=== PATIENT | female | born 1950 | race Two or more races ===

== ENCOUNTER 2023-08-09 15:29 | Inpatient (IN) | payer MEDICAID ==
[~2023-08-09] VITALS: Ht 149.9 cm; Wt 53.5 kg
[2023-08-09] MEDS ORDERED: ONDANSETRON ODT 4 MG TAB PO ONE (16:15)
[2023-08-09] MEDS ORDERED: HYDROcodone-ACET 5/325MG TAB PO ONE (16:15)
[2023-08-09 16:30] LABS: Hematocrit 34.9 % (36.0-46.0); Hemoglobin 11.9 g/dL (12.2-16.2); Mean Corpuscular Hemoglobin 29.7 pg (28.0-32.0); Mean Corpuscular Volume 87.3 fL (80.0-100.0); Red Cell Distribution Width 15.5 % (11.8-14.3); White Blood Cell 5.2 10^3/uL (4.4-10.8)
[2023-08-09 16:32] LABS: Band Neutrophils % (manual) 0; Basophils % (manual) 0 (0.0-2.0); Blast Cells 0; Metamyelocytes % 0; Myelocytes % 0; Promyelocytes % 0; Reactive Lymphocytes 0
[2023-08-09 16:49] LABS: Alanine Aminotransferase 43 U/L (7-40); Alkaline Phosphatase 125 U/L (46-116); Anion Gap 6 (5-15); Aspartate Aminotransferase 29 U/L (13-40); BUN/Creatinine Ratio 21.3 (10.0-20.0); Blood Urea Nitrogen 10 mg/dL (9-23); Calcium 8.8 mg/dL (8.7-10.4); Carbon Dioxide 24 mmol/L (20-30); Chloride 103 mmol/L (98-107); Glucose 110 mg/dL (74-106); Lipase 44 U/L (12-53); Potassium 3.5 mmol/L (3.5-5.1); Sodium 133 mmol/L (136-145)
[2023-08-09 16:50] LABS: Bilirubin, Total 0.4 mg/dL (0.2-1.0); Total Protein 7.2 g/dL (5.7-8.2)
[2023-08-09 17:10] LABS: Anisocytosis Slight; Eosinophils % (manual) 5 (0-7); Lymphocytes % (manual) 32 (10.0-50.0); Monocytes % (manual) 15 (0-12); Platelet Estimate Adequate
[2023-08-09] MEDS ORDERED: cefTRIAXone 1GM/50ML D5W 50 ML IV ONE (19:15)
[2023-08-09] MEDS ORDERED: metroNIDAZOLE 500MG/100ML 100 ML IV ONE (19:15)
[2023-08-09 21:05] LABS: Urine Bacteria NONE SEEN /hpf (None Seen); Urine Blood 2+ /uL (Negative); Urine Clarity HAZY (Clear); Urine Color Yellow (Yellow); Urine Mucus FEW (None Seen); Urine Protein, UAD 2+ (Negative); Urine Specific Gravity 1.025 (1.001-1.035); Urine Urobilinogen Normal (Negative); Urine WBC 41 /hpf (0 - 5)
[2023-08-09] MEDS: MORPHINE SULFATE INJ 2 MG/ml SYRG IV PRN (22:27)
[2023-08-09] MEDS: ONDANSETRON HCL 4 MG/2 ML VIAL IV PRN (22:27)
[2023-08-09] MEDS: SODIUM CHLORIDE 0.9% 1,000 ML IV SCH (23:03)
[2023-08-10] VITALS (9 sets, daily range): BP systolic 91–129; BP diastolic 54–69; PULSE 63–85; RESP 16–20; TEMP 98.6–100.2; O2SAT 88–94
[2023-08-10] MEDS ORDERED: METH2.5T62 PO (00:31)
[2023-08-10] MEDS ORDERED: TRAM50TA2 PO (00:31)
[2023-08-10] MEDS ORDERED: FOLI-119 PO ×2 (00:31→15:48)
[2023-08-10] MEDS ORDERED: HYDR200T36 PO ×2 (00:31→15:48)
[2023-08-10] MEDS: MORPHINE SULFATE INJ 2 MG/ml SYRG IV PRN ×4 (03:06→19:36)
[2023-08-10] MEDS: metroNIDAZOLE 500MG/100ML 100 ML IV SCH ×3 (05:35→21:45)
[2023-08-10 05:49] LABS: Hematocrit 33.3 % (36.0-46.0); Hemoglobin 11.4 g/dL (12.2-16.2); Mean Corpuscular Hemoglobin 29.7 pg (28.0-32.0); Mean Corpuscular Hgb Conc. 34.1 g/dL (32.0-36.0); Mean Corpuscular Volume 87.2 fL (80.0-100.0); Red Blood Cells 3.82 10^6/uL (4.0-5.20); Red Cell Distribution Width 15.1 % (11.8-14.3); White Blood Cell 4.4 10^3/uL (4.4-10.8)
[2023-08-10 05:55] LABS: Band Neutrophils % (manual) 0; Basophils % (manual) 0 (0.0-2.0); Blast Cells 0; Metamyelocytes % 0; Myelocytes % 0; Promyelocytes % 0; Reactive Lymphocytes 0
[2023-08-10 06:00] LABS: Alanine Aminotransferase 33 U/L (7-40); Albumin 3.4 g/dL (3.2-4.8); Alkaline Phosphatase 99 U/L (46-116); Anion Gap 4 (5-15); Aspartate Aminotransferase 22 U/L (13-40); Carbon Dioxide 25 mmol/L (20-30); Chloride 107 mmol/L (98-107); Glucose 99 mg/dL (74-106); Potassium 3.3 mmol/L (3.5-5.1); Sodium 136 mmol/L (136-145); Total Protein 6.1 g/dL (5.7-8.2)
[2023-08-10 06:01] LABS: Bilirubin, Total 0.5 mg/dL (0.2-1.0)
[2023-08-10 06:18] LABS: BUN/Creatinine Ratio 15.6 (10.0-20.0); Blood Urea Nitrogen < 5 mg/dL (9-23)
[2023-08-10 07:55] LABS: Eosinophils % (manual) 3 (0-7); Lymphocytes % (manual) 35 (10.0-50.0); Monocytes % (manual) 14 (0-12); Platelet Estimate Adequate
[2023-08-10] MEDS: cefTRIAXone 1GM/50ML D5W 50 ML IV SCH (11:17)
[2023-08-10] MEDS: SODIUM CHLORIDE 0.9% 1,000 ML IV SCH (11:35)
[2023-08-10] MEDS ORDERED: POTASSIUM CHL 20 Meq TABLET PO ONE (14:00)
[2023-08-10] MEDS ORDERED: PANTOPRAZOLE 40 MG TAB PO ONE (14:00)
[2023-08-10] MEDS ORDERED: CALC-312 PO (15:48)
[2023-08-10] MEDS ORDERED: METH2.5T PO (15:48)
[2023-08-10] MEDS ORDERED: MAGN400T40 PO (16:20)
[2023-08-10] MEDS: ONDANSETRON HCL 4 MG/2 ML VIAL IV PRN (16:56)
[2023-08-10] MEDS: PANTOPRAZOLE 40 MG TAB PO SCH (21:45)
[2023-08-11] MEDS: MORPHINE SULFATE INJ 2 MG/ml SYRG IV PRN ×4 (00:16→14:29)
[2023-08-11] MEDS: SODIUM CHLORIDE 0.9% 1,000 ML IV SCH (00:55)
[2023-08-11 05:00] VITALS: BP 115/62; PULSE 70; RESP 16; TEMP 98; O2SAT 92
[2023-08-11] MEDS: metroNIDAZOLE 500MG/100ML 100 ML IV SCH ×2 (05:47→14:29)
[2023-08-11 06:06] LABS: Hematocrit 33.4 % (36.0-46.0); Hemoglobin 11.4 g/dL (12.2-16.2); Mean Corpuscular Hemoglobin 29.6 pg (28.0-32.0); Mean Corpuscular Hgb Conc. 34.1 g/dL (32.0-36.0); Red Blood Cells 3.84 10^6/uL (4.0-5.20); Red Cell Distribution Width 15.2 % (11.8-14.3); White Blood Cell 3.9 10^3/uL (4.4-10.8)
[2023-08-11 06:10] LABS: Band Neutrophils % (manual) 0; Basophils % (manual) 0 (0.0-2.0); Metamyelocytes % 0; Myelocytes % 0; Promyelocytes % 0
[2023-08-11 06:11] LABS: Blast Cells 0; Reactive Lymphocytes 0
[2023-08-11 06:15] LABS: Alanine Aminotransferase 29 U/L (7-40); Albumin 3.5 g/dL (3.2-4.8); Alkaline Phosphatase 106 U/L (46-116); Anion Gap 5 (5-15); Aspartate Aminotransferase 19 U/L (13-40); Calcium 8.6 mg/dL (8.7-10.4); Carbon Dioxide 24 mmol/L (20-30); Chloride 109 mmol/L (98-107); Glucose 102 mg/dL (74-106); Lipase 37 U/L (12-53); Magnesium 1.9 mg/dL (1.6-2.6); Potassium 3.4 mmol/L (3.5-5.1); Sodium 138 mmol/L (136-145)
[2023-08-11 06:16] LABS: Bilirubin, Total 0.5 mg/dL (0.2-1.0); Total Protein 6.4 g/dL (5.7-8.2)
[2023-08-11 06:31] LABS: BUN/Creatinine Ratio 14.7 (10.0-20.0); Blood Urea Nitrogen < 5 mg/dL (9-23)
[2023-08-11 07:24] LABS: Eosinophils % (manual) 2 (0-7); Lymphocytes % (manual) 28 (10.0-50.0); Monocytes % (manual) 8 (0-12); Platelet Estimate Adequate
[2023-08-11 09:00] VITALS: BP 110/59; PULSE 74; RESP 12; TEMP 98.8; O2SAT 93
[2023-08-11] MEDS ORDERED: POTASSIUM CHL 20MEQ/100ML 100 ML IV ONE ×2 (09:15→11:30)
[2023-08-11] MEDS: cefTRIAXone 1GM/50ML D5W 50 ML IV SCH (09:47)
[2023-08-11] MEDS: PANTOPRAZOLE 40 MG TAB PO SCH (10:45)
[2023-08-11 13:00] VITALS: BP 116/65; PULSE 74; RESP 12; TEMP 99.4; O2SAT 92
[2023-08-11 17:00] VITALS: BP_SYST 116; BP_SYST 142; BP_DIAS 65; BP_DIAS 82; PULSE 74; PULSE 77; RESP 12; RESP 20; TEMP 98.1; TEMP 99.4; O2SAT 92; O2SAT 94
== END 2023-08-11 18:30 | disposition left against medical advice (07) ==
LOC: ER 15:29 → OVERFLOW 22:04 → WEST WING 23:56
PROVIDERS: ADMIT Nurse Practitioner; ATTEND Internal Medicine Geriatric Medicine
DX: K80.70 Calculus of gallbladder and bile duct without cholecystitis without obstruction (principal); K86.2 Cyst of pancreas; D73.89 Other diseases of spleen; E78.5 Hyperlipidemia, unspecified; E87.6 Hypokalemia; I10 Essential (primary) hypertension; M06.9 Rheumatoid arthritis, unspecified; N39.0 Urinary tract infection, site not specified; R73.03 Prediabetes; Z53.29 Procedure and treatment not carried out because of patient's decision for other reasons
CPT/HCPCS: 36415; 74181; 76705; 78226; 80053; 81001; 83605; 83690; 83735; 85007; 85027; 87081; 93306; 96365; G0378; J0696; J2405; J3480; J3490; Q0162